=== PATIENT | female | born 1945 | race Caucasian/White ===

== ENCOUNTER → 2018-11-12 12:32 | Outpatient (CLI) | payer OTHER, SELFPAY ==
--- NOTE | 2018-11-12 | DI.RAD.S_ITS ---
PROCEDURE: XR CHEST 2V INDICATIONS: ABNORMAL WEIGHT LOSS TECHNIQUE: 2 views of the chest were acquired. COMPARISON: [facility], CHEST 1VW (PORTABLE), 05/30/2013, 19:02. FINDINGS: Surgical changes and devices: None. Lungs and pleura: Lungs are clear. No pleural effusions or pneumothorax. Mediastinum: Mediastinal contours are normal. Heart size is normal. Bones and chest wall: No suspicious bony abnormalities. Soft tissues appear unremarkable. IMPRESSION: Normal for age, source of current unexpected weight loss symptoms is not seen. Dictated by: Alex Lawrence M.D. on 11/12/2018 at 13:36 Approved by: Alex Lawrence M.D. on 11/12/2018 at 13:36
== END ==
PROVIDERS: Visit Provider Internal Medicine
DX: R63.4 Abnormal weight loss (principal)
CPT/HCPCS: 71046

== ENCOUNTER → 2020-08-10 19:20 | Outpatient (ROUT) | payer OTHER, SELFPAY ==
[2020-08-10 19:33] LABS: Add Manual Diff / Slide Review NO; Basophils Absolute Auto 100 /uL (0-100); Basophils Percent Auto 1.1 % (0-2); Eosinophils Absolute Auto 0 /uL (0-450); Eosinophils Percent Auto 0.5 % (2-4); Hematocrit 37.2 % (36-46); Hemoglobin 12.2 g/dL (12.0-16.0); Lymphocytes Absolute Auto 1300 /uL (1100-4500); Mean Corpuscular HGB Conc 32.8 % (30-36); Mean Corpuscular Hemoglobin 30.3 PG (26-34); Mean Corpuscular Volume 92.5 fL (80-100); Monocytes Absolute Auto 700 /uL (0-900); Monocytes Percent Auto 8.4 % (3-14); Neutrophils Absolute Auto 6200 /uL (1500-7000); Platelet Count 341 X10^3/uL (150-400); Red Blood Cell Count 4.02 X10^6/uL (4.0-5.2); Red Cell Distribution Width 14.9 % (11.6-14.8); White Blood Cell Count 8.3 X10^3/uL (4.5-11.0)
[2020-08-10 19:40] LABS: Alanine Aminotransferase 159 IU/L (<35); Albumin Globulin Ratio 1.1 (1.0-2.8); Alkaline Phosphatase 664 U/L (38-126); Aspartate Aminotransferase 195 IU/L (14-36); BUN Creatinine Ratio 21.8 (6-22); Bilirubin Total 1.5 mg/dL (0.2-1.3); Blood Urea Nitrogen 26 mg/dL (7-17); Calcium 10.1 mg/dL (8.4-10.2); Carbon Dioxide 21 mmol/L (22-32); Chloride 103 mmol/L (98-107); Cholesterol 174 mg/dL (140-199); Globulin 3.6 g/dL (1.7-4.1); Glucose 120 mg/dL (80-110); HDL Cholesterol 56 mg/dL (40-60); HEMOLYSIS < 15 (0-50); LDL Cholesterol Calculated 91 mg/dL (<100); Phosphorous 3.8 mg/dL (2.8-4.1); Potassium 4.9 mmol/L (3.4-5.1); Sodium 135 mmol/L (137-145); Total Protein 7.6 g/dL (6.3-8.2); Triglycerides 136 mg/dL (35-150)
[2020-08-10 20:10] LABS: TSH w/ Reflex to FT4 3.88 uIU/mL (0.47-4.68)
[2020-08-12 09:57] LABS: Cancer (Carbohydrate) Ag 19-9 < 2 U/mL (0-35)
[2020-08-12 10:43] LABS: Parathyroid Hormone Int 41 pg/mL (15-65)
== END ==
PROVIDERS: Visit Provider Internal Medicine
DX: E78.2 Mixed hyperlipidemia (principal); N18.30 Chronic kidney disease, stage 3 unspecified
CPT/HCPCS: 80053; 80061; 82378; 83970; 84100; 84443; 85025; 86301

== ENCOUNTER → 2020-08-15 12:49 | Outpatient (CLI) | payer OTHER, SELFPAY ==
--- NOTE | 2020-08-15 | DI.CT.S_ITS ---
PROCEDURE: CT CHEST ABD PEL W CON INDICATIONS: Unspecified abdominal pain TECHNIQUE: After the administration of oral and intravenous contrast, 5 mm thick sections acquired from the lung apices to the symphysis. 5 mm coronal and sagittal reformats were performed, with additional 7 mm coronal MIP reformats through the lungs. For radiation dose reduction, the following was used: automated exposure control, adjustment of mA and/or kV according to patient size. COMPARISON: [facility], CT, ABDOMEN/PELVIS WITH CONTRAST, 03/03/2014, 13:38. FINDINGS: Image quality: Excellent. CHEST: Lungs and pleura: There is a peripheral spiculated nodule in the right upper lobe measuring up to 2.3 x 2.2 cm on series 6, image 61 with extension to the pleura. Multiple additional clustered nodules in a linear distribution are demonstrated more medially in the right upper lobe extending to the hilum. These include a distribution sales representative adjacent 0.9 cm nodule on image 60 as well as a perihilar nodule on image 96 measuring up to 2.2 x 1.4 cm which demonstrates encasement of perihilar bronchovascular structures. Within the left upper lobe, there is a small irregular subpleural nodule on image 42 measuring up to 0.5 cm. No pleural effusions or pneumothorax. There are dependent filling defects within the right mainstem bronchus and bronchus intermedius suggestive of mucous. Mediastinum: Heart size is normal. No pericardial effusion. Thoracic aorta and central pulmonary arteries are normal in size. Multiple enlarged bulky centrally necrotic mediastinal lymph nodes are demonstrated including a precarinal node measuring up to 3.4 x 3.1 cm on series 3, image 25. A distribution sales representative enlarged right paratracheal node measures 3.0 x 2.3 cm on image 20. Enlarged confluent precarinal anterior mediastinal lymph nodes are also demonstrated with a distribution sales representative node on image 19 measuring up to 1.8 cm in short axis. Esophagus is normal in caliber. No hiatal hernia. Chest wall: No axillary or supraclavicular adenopathy by size criteria. ABDOMEN: Solid organs: Innumerable peripherally enhancing mass lesions are demonstrated throughout an enlarged liver consistent with metastatic disease. A distribution sales representative mass in the right hepatic lobe measures up to 6.9 x 5.8 x 7.3 cm on axial image 58 of series 3 and coronal image 33 of series 4. The gallbladder appears within normal limits without calcified gallstones. Biliary system is non-dilated. Pancreas enhances normally. No peripancreatic fat stranding or fluid collections. No pancreatic duct dilatation. The spleen is normal in size. No adrenal nodules. Kidneys demonstrate no hydronephrosis. Peritoneum and bowel: Bowel loops demonstrate normal wall thickness and caliber. There is colonic diverticulosis without acute diverticulitis. There is a small amount of intraperitoneal free fluid. No free air. Nodes and vessels: No retroperitoneal or mesenteric adenopathy by size criteria. Aorta and inferior vena cava are normal in size. Miscellaneous: No ventral hernias. PELVIS: Genitourinary: Bladder wall thickness is normal. Miscellaneous: No inguinal hernias or adenopathy. Bones: There is heterogeneous appearance of the visualized osseous structures without a definite suspicious lesion. No vertebral body compression fractures. IMPRESSION: 1. Spiculated peripheral nodule in the right upper lobe likely representing a bronchogenic carcinoma. 2. Multiple additional clustered nodules in a linear distribution demonstrated in the right upper lobe extending to the hilum are compatible with additional foci of disease. A small nonspecific subpleural nodule is also demonstrated in the left upper lobe. 3. Extensive bulky necrotic mediastinal lymphadenopathy consistent with metastatic disease. 4. Enlarged liver with innumerable peripherally enhancing centrally necrotic mass lesions consistent with metastatic disease. Dictated by: Vance Smith M.D. on 08/15/2020 at 14:43 Approved by: Vance Smith M.D. on 08/15/2020 at 14:59
== END ==
PROVIDERS: PCP Internal Medicine; Referring Provider Internal Medicine; Visit Provider Internal Medicine
DX: R91.1 Solitary pulmonary nodule (principal); R16.0 Hepatomegaly, not elsewhere classified; R10.9 Unspecified abdominal pain
CPT/HCPCS: 71260; 74177